=== PATIENT | male | born 1990 | race Caucasian/White ===

== ENCOUNTER → 2019-05-22 | Outpatient (CLI) | payer BC ==
[~2019-05-22] MED LIST: OXYC1TAB87 PO
--- NOTE | 2019-05-22 09:54 | Diagnostic Imaging Report ---
PROCEDURE: US Hepatic (Liver). TECHNIQUE: Multiple real-time grayscale images were obtained over the right upper quadrant in various projections. INDICATION: Elevated liver enzymes. The liver is normal in size at 16 cm. No discrete liver mass is identified. The portal vein is patent and demonstrates normal direction of flow. Gallbladder is surgically absent. No biliary ductal dilatation is identified. The pancreas is obscured by bowel gas. IVC is patent. Right kidney is unremarkable. No calculi or hydronephrosis is detected. There is no ascites. IMPRESSION: Unremarkable liver ultrasound. Dictated by: Dictated on workstation # [id number]
== END ==
LOC: RAD 08:29
PROVIDERS: ATTEND Nurse Practitioner Family
DX: R74.8 Abnormal levels of other serum enzymes (principal)
CPT/HCPCS: 76705